=== PATIENT | male | born 1975 | race Caucasian/White ===

== ENCOUNTER 2017-12-05 00:40 | Inpatient (IN) | payer MEDICAID ==
[~2017-12-05] VITALS: Ht 5535.5 cm; Wt 68.4 kg
[2017-12-05] MEDS ORDERED: normal saline 1000ML IV soln IVB ONE (01:45)
[2017-12-05] MEDS ORDERED: ondansetron/PF 4mg/2ml inj IV ONE (01:45)
[2017-12-05 02:39] LABS: BASOPHILS % (AUTO) 0.1 % (0-1); EOSINOPHILS # (AUTO) 0.2 X10'3 (0-0.9); EOSINOPHILS % (AUTO) 0.9 % (0-6); HEMATOCRIT 34.8 % (42.0-52.0); HEMOGLOBIN 11.9 g/dl (14.0-17.9); LYMPHOCYTES # (AUTO) 1.3 X10'3 (1.1-4.8); LYMPHOCYTES % (AUTO) 6.1 % (21-51); MEAN CORPUSCULAR HEMOGLOBIN 28.4 PG (27.0-31.0); MEAN CORPUSCULAR HGB CONC 34.1 % (33.0-36.5); MEAN CORPUSCULAR VOLUME 83.3 FL (78-98); MEAN PLATELET VOLUME 8.3 FL (7.4-10.4); MONOCYTES # (AUTO) 1.4 X10'3 (0-0.9); NEUTROPHILS # (AUTO) 17.5 X10'3 (1.8-7.7); NEUTROPHILS % (AUTO) 85.9 % (42-75); PLATELET COUNT 303 X10'3 (140-440); RED BLOOD COUNT 4.18 X10'6 (4.70-6.10); RED CELL DISTRIBUTION WIDTH 13.2 % (11.5-14.5); WHITE BLOOD COUNT 20.4 X10'3 (4.5-11.0)
[2017-12-05 02:48] LABS: CLARITY,URINE SLIGHTLY CLOUDY (Clear); COLOR,URINE YELLOW (Yellow); GLUCOSE, URINE NEGATIVE (Neg); KETONES,URINE TRACE mg/dl (Neg); LEUKOCYTE ESTERASE ,URINE NEGATIVE (Neg); NITRITES, URINE NEGATIVE (Neg); OCCULT BLOOD,URINE LARGE (Neg); PH,URINE 5.5 (4.8-8.0); PROTEIN,URINE 100 mg/dl (Neg); UROBILINOGEN,URINE 0.2 E.U/dL (0.2-1.0)
[2017-12-05 02:52] LABS: UA COLLECTION TYPE CLN CATCH MIDSTREAM
[2017-12-05 02:55] LABS: MUCUS STRANDS MANY /LPF (Neg); SPERM MANY /HPF (NEGATIVE)
[2017-12-05 02:57] LABS: URINE AMPHETAMINE SCREEN POSITIVE (Neg)
[2017-12-05 02:58] LABS: BACTERIA,URINE 1+ /HPF (Neg); SQUAMOUS EPITHELIAL CELL,UR MODERATE /LPF (FEW)
[2017-12-05 03:01] LABS: FINE GRANULAR CAST 0-3 /LPF (NEGATIVE)
[2017-12-05 03:02] LABS: ALANINE AMINOTRANSFERASE 208 U/L (12-78); ALBUMIN/GLOBULIN RATIO 1.2 (1.1-1.5); ALKALINE PHOSPHATASE 64 IU/L (46-116); ANION GAP 20 (8-16); ASPARTATE AMINO TRANSFERASE 249 U/L (10-37); BILIRUBIN,TOTAL 1.3 MG/DL (0.1-1.0); BLOOD UREA NITROGEN 46 MG/DL (7-18); CALCIUM 8.2 MG/DL (8.5-10.1); CHLORIDE 105 MMOL/L (99-107); ETHANOL < 0.010 GM/DL (0.0-0.010); GLUCOSE 84 MG/DL (70-104); POTASSIUM 3.6 MMOL/L (3.5-5.1); SODIUM 143 MMOL/L (135-145); TOTAL CARBON DIOXIDE 17.9 MMOL/L (24-32); TOTAL PROTEIN 7.3 G/DL (6.4-8.2); eGFR 26 ML/MIN
[2017-12-05 03:04] LABS: URINE BARBITUATE SCREEN NEGATIVE (Neg); URINE BENZODIAZEPINES SCREEN NEGATIVE (Neg); URINE CANNABINOID SCREEN NEGATIVE (Neg); URINE COCAINE SCREEN NEGATIVE (Neg); URINE METHADONE SCREEN NEGATIVE (Neg); URINE OPIATE SCREEN NEGATIVE (Neg); URINE PHENCYCLIDINE SCREEN NEGATIVE (Neg)
[2017-12-05] MEDS ORDERED: normal saline 1000ML IV soln IV ONE (05:15)
[2017-12-05] MEDS ORDERED: CefTRIAXone 2gm/NS 100ml IVPB 100 ML IV ONE (05:15)
[2017-12-05 08:11] LABS: ABG HCO3 15.5 mmol/L (22.0-26.0); ABG OXYGEN SATURATION 93.5 % (95-98); ABG PCO2 (T) 29.5 mmHg (35.0-48.0); ABG PH (T) 7.337 (7.350-7.450); ABG PO2 (T) 73.3 mmHg (83-108); ALLEN'S TEST Positive; FCOHb 0.4 % (0.5-1.5); FMetHb 0.1 % (0.3-1.12); TOTAL HEMOGLOBIN 12.6 G/dl (14.0-18.0)
[2017-12-05] MEDS ORDERED: NO HOME MEDS (08:11)
[2017-12-05] MEDS ORDERED: adenosine 3mg/ml 2ml vial IV ONE (08:30)
[2017-12-05] MEDS ORDERED: potassium Cl 20 mEq SR tablet PO PRN ×2 (08:40)
[2017-12-05] MEDS ORDERED: potassium Cl 40MEQ/NS 500ml 500 ML IV PRN ×2 (08:40)
[2017-12-05] MEDS ORDERED: magnesium hydroxide 30ml (MOM) UD suspension PO PRN (08:40)
[2017-12-05] MEDS ORDERED: magnesium Cl slow-release 64mg tablet PO PRN (08:40)
[2017-12-05] MEDS ORDERED: acetaminophen 325mg tablet PO PRN (08:40)
[2017-12-05] MEDS ORDERED: magnesium 2GM in 50ml NS 50 ML IV PRN (08:40)
[2017-12-05] MEDS ORDERED: magnesium 4gm in 100ml NS 100 ML IV PRN (08:40)
[2017-12-05] MEDS ORDERED: morphine 2 MG/ML inj. syringe IV PRN (08:40)
[2017-12-05] MEDS ORDERED: mag hydrox/Alum hydrox/simeth 30ml oral suspension PO PRN (08:40)
[2017-12-05] MEDS ORDERED: ondansetron/PF 4mg/2ml inj IV PRN (08:40)
[2017-12-05] MEDS: normal saline 1000ml 1,000 ML IV SCH ×2 (09:48→21:27)
[2017-12-05] MEDS ORDERED: FLU VACC QS2017-18 36MOS UP/PF 60 MCG/0.5 ML SYRINGE IMVAC ONE (10:00)
[2017-12-05] MEDS ORDERED: pneumococcal 23-VAL P-sac vacc 25 mcg/0.5ml vial IMVAC ONE (10:00)
[2017-12-05 10:15] VITALS: BP 92/57
[2017-12-05 14:15] VITALS: BP 110/55
[2017-12-05 15:00] VITALS: BP 109/44
[2017-12-05] MEDS ORDERED: LORazepam 2 mg/ml vial IV PRN ×3 (18:30→22:55)
[2017-12-05 19:00] VITALS: BP 95/45
[2017-12-05] MEDS: HYDROcodone/acetaminophen 5mg/325mg tablet PO PRN (19:04)
[2017-12-05] MEDS ORDERED: aspirin 81mg tab.chew PO ONE (20:05)
[2017-12-05] MEDS: metoprolol tartrate 1mg/ml inj IV SCH (21:25)
[2017-12-05] MEDS: heparin, porcine 5000 units/ml vial SQ SCH (21:26)
[2017-12-05 23:03] VITALS: BP 99/61
[2017-12-06 03:00] VITALS: BP 107/62
[2017-12-06] MEDS: metoprolol tartrate 1mg/ml inj IV SCH ×2 (03:06→09:32)
[2017-12-06] MEDS: normal saline 1000ml 1,000 ML IV SCH ×3 (06:00→20:03)
[2017-12-06 07:00] VITALS: BP 107/53
[2017-12-06 07:41] LABS: BASOPHILS % (AUTO) 0.2 % (0-1); EOSINOPHILS # (AUTO) 0.2 X10'3 (0-0.9); EOSINOPHILS % (AUTO) 1.5 % (0-6); HEMATOCRIT 31.6 % (42.0-52.0); HEMOGLOBIN 10.7 g/dl (14.0-17.9); LYMPHOCYTES # (AUTO) 2.1 X10'3 (1.1-4.8); LYMPHOCYTES % (AUTO) 15.9 % (21-51); MEAN CORPUSCULAR HEMOGLOBIN 28.2 PG (27.0-31.0); MEAN CORPUSCULAR HGB CONC 33.8 % (33.0-36.5); MEAN CORPUSCULAR VOLUME 83.4 FL (78-98); MEAN PLATELET VOLUME 9.1 FL (7.4-10.4); MONOCYTES # (AUTO) 1.3 X10'3 (0-0.9); MONOCYTES % (AUTO) 9.6 % (2-12); NEUTROPHILS # (AUTO) 9.8 X10'3 (1.8-7.7); NEUTROPHILS % (AUTO) 72.8 % (42-75); PLATELET COUNT 278 X10'3 (140-440); RED BLOOD COUNT 3.78 X10'6 (4.70-6.10); RED CELL DISTRIBUTION WIDTH 13.6 % (11.5-14.5); WHITE BLOOD COUNT 13.5 X10'3 (4.5-11.0)
[2017-12-06 08:00] LABS: ALBUMIN 3.2 G/DL (3.4-5.0); ANION GAP 9 (8-16); BLOOD UREA NITROGEN 21 MG/DL (7-18); CHLORIDE 111 MMOL/L (99-107); GLUCOSE 87 MG/DL (70-104); POTASSIUM 3.6 MMOL/L (3.5-5.1); SODIUM 143 MMOL/L (135-145); eGFR 82 ML/MIN
[2017-12-06] MEDS: K and/or MAG REPLACEMENT MC SCH (08:00)
[2017-12-06] MEDS: heparin, porcine 5000 units/ml vial SQ SCH ×2 (09:31→19:59)
[2017-12-06] MEDS: aspirin 81mg tab.chew PO SCH (09:47)
[2017-12-06 11:00] VITALS: BP 116/67
[2017-12-06] MEDS: atorvastatin 20mg tablet PO SCH (12:32)
[2017-12-06 15:00] VITALS: BP 110/68
[2017-12-06] MEDS ORDERED: acetaminophen 325mg tablet PO PRN (16:25)
[2017-12-06] MEDS: cefTRIAXone 1g/NS 100ml IVPB 100 ML IV SCH (17:28)
[2017-12-06] MEDS: benzocaine/menthol oral lozeng 1 EACH BOX MM PRN ×2 (17:30→20:02)
[2017-12-06 19:00] VITALS: BP 121/80
[2017-12-06] MEDS: metoprolol tartrate 12.5mg (1/2 tablet) PO SCH (20:00)
[2017-12-06 23:00] VITALS: BP 125/71
[2017-12-07 03:00] VITALS: BP 121/83
[2017-12-07 05:09] LABS: BASOPHILS % (AUTO) 0.2 % (0-1); EOSINOPHILS # (AUTO) 0.3 X10'3 (0-0.9); EOSINOPHILS % (AUTO) 2.2 % (0-6); HEMATOCRIT 31.7 % (42.0-52.0); HEMOGLOBIN 10.7 g/dl (14.0-17.9); LYMPHOCYTES # (AUTO) 2.5 X10'3 (1.1-4.8); MEAN CORPUSCULAR HEMOGLOBIN 28.3 PG (27.0-31.0); MEAN CORPUSCULAR HGB CONC 33.9 % (33.0-36.5); MEAN CORPUSCULAR VOLUME 83.5 FL (78-98); MEAN PLATELET VOLUME 9.3 FL (7.4-10.4); MONOCYTES # (AUTO) 1.3 X10'3 (0-0.9); MONOCYTES % (AUTO) 10.3 % (2-12); NEUTROPHILS # (AUTO) 8.9 X10'3 (1.8-7.7); NEUTROPHILS % (AUTO) 68.3 % (42-75); PLATELET COUNT 241 X10'3 (140-440); RED CELL DISTRIBUTION WIDTH 13.8 % (11.5-14.5)
[2017-12-07 05:46] LABS: ALBUMIN 2.9 G/DL (3.4-5.0); ANION GAP 9 (8-16); BLOOD UREA NITROGEN 14 MG/DL (7-18); BUN/CREATININE RATIO 15.6 (5.4-32.0); CHLORIDE 110 MMOL/L (99-107); GLUCOSE 98 MG/DL (70-104); MAGNESIUM 1.7 MG/DL (1.5-2.4); POTASSIUM 3.5 MMOL/L (3.5-5.1); SODIUM 143 MMOL/L (135-145); TOTAL CARBON DIOXIDE 24.5 MMOL/L (24-32); eGFR > 90 ML/MIN
[2017-12-07 07:00] VITALS: BP 123/82
[2017-12-07] MEDS: atorvastatin 20mg tablet PO SCH (07:45)
[2017-12-07] MEDS: heparin, porcine 5000 units/ml vial SQ SCH ×2 (07:45→19:39)
[2017-12-07] MEDS: cefTRIAXone 1g/NS 100ml IVPB 100 ML IV SCH (07:45)
[2017-12-07] MEDS: metoprolol tartrate 12.5mg (1/2 tablet) PO SCH ×2 (07:45→19:38)
[2017-12-07] MEDS: aspirin 81mg tab.chew PO SCH (07:45)
[2017-12-07] MEDS: HYDROcodone/acetaminophen 5mg/325mg tablet PO PRN ×2 (07:46→19:42)
[2017-12-07] MEDS: K and/or MAG REPLACEMENT MC SCH (08:00)
[2017-12-07] MEDS: normal saline 1000ml 1,000 ML IV SCH ×2 (10:36→19:44)
[2017-12-07 15:00] VITALS: BP 137/88
[2017-12-08 05:09] LABS: BASOPHILS % (AUTO) 0.3 % (0-1); EOSINOPHILS # (AUTO) 0.3 X10'3 (0-0.9); EOSINOPHILS % (AUTO) 2.7 % (0-6); LYMPHOCYTES # (AUTO) 2.7 X10'3 (1.1-4.8); LYMPHOCYTES % (AUTO) 24.3 % (21-51); MEAN CORPUSCULAR HEMOGLOBIN 28.6 PG (27.0-31.0); MEAN CORPUSCULAR HGB CONC 34.3 % (33.0-36.5); MEAN CORPUSCULAR VOLUME 83.6 FL (78-98); MEAN PLATELET VOLUME 9.2 FL (7.4-10.4); MONOCYTES # (AUTO) 1.3 X10'3 (0-0.9); MONOCYTES % (AUTO) 11.8 % (2-12); NEUTROPHILS # (AUTO) 6.8 X10'3 (1.8-7.7); NEUTROPHILS % (AUTO) 60.9 % (42-75); PLATELET COUNT 301 X10'3 (140-440); RED BLOOD COUNT 4.19 X10'6 (4.70-6.10); RED CELL DISTRIBUTION WIDTH 13.6 % (11.5-14.5); WHITE BLOOD COUNT 11.1 X10'3 (4.5-11.0)
[2017-12-08 05:32] LABS: ALBUMIN 2.8 G/DL (3.4-5.0); ANION GAP 10 (8-16); BLOOD UREA NITROGEN 10 MG/DL (7-18); BUN/CREATININE RATIO 13.3 (5.4-32.0); CALCIUM 8.3 MG/DL (8.5-10.1); CHLORIDE 108 MMOL/L (99-107); CREATININE 0.75 MG/DL (0.60-1.10); GLUCOSE 93 MG/DL (70-104); MAGNESIUM 1.7 MG/DL (1.5-2.4); POTASSIUM 3.3 MMOL/L (3.5-5.1); SODIUM 144 MMOL/L (135-145); eGFR > 90 ML/MIN
[2017-12-08 06:00] VITALS: BP 140/91
[2017-12-08] MEDS: normal saline 1000ml 1,000 ML IV SCH ×2 (06:36→13:19)
[2017-12-08] MEDS: atorvastatin 20mg tablet PO SCH (07:49)
[2017-12-08] MEDS: lactobacillus rhamnosus 10,000 MMU CELLS/CAPSULE PO SCH ×2 (07:49→16:58)
[2017-12-08] MEDS: metoprolol tartrate 12.5mg (1/2 tablet) PO SCH ×2 (07:50→19:33)
[2017-12-08] MEDS: aspirin 81mg tab.chew PO SCH (07:50)
[2017-12-08] MEDS: CefTRIAXone 1 gm/50ml D5W ADV 50 ML IV SCH (07:51)
[2017-12-08] MEDS: heparin, porcine 5000 units/ml vial SQ SCH ×2 (07:52→19:37)
[2017-12-08] MEDS: K and/or MAG REPLACEMENT MC SCH (08:00)
[2017-12-08] MEDS ORDERED: potassium Cl 20 mEq SR tablet PO PRN (10:50)
[2017-12-08] MEDS ORDERED: potassium Cl 40MEQ/NS 500ml 500 ML IV PRN ×2 (10:50)
[2017-12-08 11:00] VITALS: BP 146/96
[2017-12-08 15:00] VITALS: BP 136/93
[2017-12-08 19:00] VITALS: BP 148/97
[2017-12-08] MEDS: HYDROcodone/acetaminophen 5mg/325mg tablet PO PRN (19:35)
[2017-12-08] MEDS: potassium Cl 20 mEq SR tablet PO PRN (19:40)
[2017-12-08 22:00] VITALS: BP 125/76
[2017-12-09] MEDS: potassium Cl 20 mEq SR tablet PO PRN ×2 (00:08→05:14)
[2017-12-09 02:00] VITALS: BP 129/88
[2017-12-09] MEDS: normal saline 1000ml 1,000 ML IV SCH ×2 (02:36→12:36)
[2017-12-09 05:49] LABS: BASOPHILS % (AUTO) 0.5 % (0-1); EOSINOPHILS # (AUTO) 0.4 X10'3 (0-0.9); EOSINOPHILS % (AUTO) 4.4 % (0-6); HEMATOCRIT 37.3 % (42.0-52.0); HEMOGLOBIN 12.8 g/dl (14.0-17.9); LYMPHOCYTES # (AUTO) 3.6 X10'3 (1.1-4.8); LYMPHOCYTES % (AUTO) 36.1 % (21-51); MEAN CORPUSCULAR HEMOGLOBIN 28.6 PG (27.0-31.0); MEAN CORPUSCULAR HGB CONC 34.3 % (33.0-36.5); MEAN CORPUSCULAR VOLUME 83.4 FL (78-98); MONOCYTES # (AUTO) 1.3 X10'3 (0-0.9); MONOCYTES % (AUTO) 13.6 % (2-12); NEUTROPHILS # (AUTO) 4.5 X10'3 (1.8-7.7); NEUTROPHILS % (AUTO) 45.4 % (42-75); PLATELET COUNT 362 X10'3 (140-440); RED BLOOD COUNT 4.48 X10'6 (4.70-6.10); RED CELL DISTRIBUTION WIDTH 13.5 % (11.5-14.5); WHITE BLOOD COUNT 9.9 X10'3 (4.5-11.0)
[2017-12-09 06:00] VITALS: BP 138/97
[2017-12-09 06:21] LABS: ANION GAP 10 (8-16); BLOOD UREA NITROGEN 11 MG/DL (7-18); BUN/CREATININE RATIO 14.5 (5.4-32.0); CALCIUM 8.8 MG/DL (8.5-10.1); CHLORIDE 107 MMOL/L (99-107); CREATININE 0.76 MG/DL (0.60-1.10); GLUCOSE 89 MG/DL (70-104); MAGNESIUM 1.8 MG/DL (1.5-2.4); POTASSIUM 3.9 MMOL/L (3.5-5.1); SODIUM 143 MMOL/L (135-145); TOTAL CARBON DIOXIDE 26.3 MMOL/L (24-32); eGFR > 90 ML/MIN
[2017-12-09] MEDS: CefTRIAXone 1 gm/50ml D5W ADV 50 ML IV SCH (07:51)
[2017-12-09] MEDS: lactobacillus rhamnosus 10,000 MMU CELLS/CAPSULE PO SCH (07:51)
[2017-12-09] MEDS: atorvastatin 20mg tablet PO SCH (07:51)
[2017-12-09] MEDS: aspirin 81mg tab.chew PO SCH (07:51)
[2017-12-09] MEDS: metoprolol tartrate 12.5mg (1/2 tablet) PO SCH (07:52)
[2017-12-09] MEDS: heparin, porcine 5000 units/ml vial SQ SCH (07:52)
[2017-12-09] MEDS: K and/or MAG REPLACEMENT MC SCH (08:00)
[2017-12-09 11:00] VITALS: BP 138/97
[2017-12-09] MEDS ORDERED: cefTRIAXone 1g/NS 100ml IVPB 100 ML IV SCH (12:05)
[2017-12-09 14:00] LABS: TROPONIN I 0.58 NG/ML (0.0-0.05)
[2017-12-09] MEDS ORDERED: NAPR250T4 PO (14:20)
[2017-12-09] MEDS ORDERED: METO25TA6 PO (14:55)
[2017-12-09] MEDS ORDERED: ASPI-1265 PO (14:55)
[2017-12-09] MEDS ORDERED: ATOR20TA66 PO (14:55)
[2017-12-09 15:00] VITALS: BP 143/96
[2017-12-09] MEDS ORDERED: HYDR50CA PO (15:04)
== END 2017-12-09 16:02 | disposition home or self-care (01) | DRG 463 ==
LOC: ER 00:40 → ED HOLD 08:36 → PCU 3S 10:15
PROVIDERS: ADMIT Internal Medicine; ATTEND Family Medicine
DX: N39.0 Urinary tract infection, site not specified (principal); N17.9 Acute kidney failure, unspecified; E87.2 Acidosis; I47.1 Supraventricular tachycardia; K76.0 Fatty (change of) liver, not elsewhere classified; E86.0 Dehydration; D64.9 Anemia, unspecified; E03.9 Hypothyroidism, unspecified; F15.23 Other stimulant dependence with withdrawal; F17.200 Nicotine dependence, unspecified, uncomplicated; K29.70 Gastritis, unspecified, without bleeding; R74.0 Nonspecific elevation of levels of transaminase and lactic acid dehydrogenase [LDH]; R79.89 Other specified abnormal findings of blood chemistry; Z59.0 Homelessness; Z79.899 Other long term (current) drug therapy; Z90.49 Acquired absence of other specified parts of digestive tract
CPT/HCPCS: 36415; 36600; 71045; 74176; 80048; 80053; 80305; 80320; 81001; 82803; 83605; 83735; 83880; 84145; 84439; 84443; 84484; 85018; 85025; 87040; 87070; 90732; 93005; 93306; 96361; 96365; 96375; 99285; J0696; J1644; J2060; J2405; J3490; J7030; Q2037